=== PATIENT | female | born 1960 | race Caucasian/White ===

== ENCOUNTER 2019-08-10 14:31 | Emergency (ER) | payer SELFPAY ==
[~2019-08-10] VITALS: Ht 162.6 cm; Wt 72.6 kg
[2019-08-10 14:31] VITALS: BP 135/98
--- NOTE | 2019-08-10 14:32 | NUR ---
PT BIBA TO BED 04.
--- NOTE | 2019-08-10 14:40 | NUR ---
58 YEAR OLD FEMALE BIBA FROM HOUSE. PATIENT COMPLAINS OF HEADACHE 6/10 BURNING PAIN, WITH NUMB MOUTH AND "HEAD PRESSURE" AFTER SHE ATE YOGURT. PATIENT STATES SHE ATE YOGURT AT 1350. PATIENT ALERT AND ORIENTED, BREATHING EVEN AND UNLABORED, SKIN WARM AND DRY. BED IN LOWEST POSITION, LOCKED, BED RAIL UPX1.
[2019-08-10] MEDS: ALUMINUM HYD/MAG/SIMETHICONE 30 ML UDC PO ONE (15:31)
[2019-08-10] MEDS: FAMOTIDINE 20 MG TAB PO ONE (15:31)
--- NOTE | 2019-08-10 15:31 | NUR ---
ATTEMPTED TO ADMINISTERED PEPCID PO AND MAALOX ORDERED WITH EDUCATION, PT CHEWED PEPCID AND SPIT INTO WATER, DID NOT DRINK WATER AFTER. PATIENT DENIES MAALOX AND STATED THAT IT "BURNED" AND THAT SHE WOULD RATHER HAVE BAKING SODA.
--- NOTE | 2019-08-10 15:35 | NUR ---
PRIMARY RN ATTEMPTED TO MEDICATE PT. PT REFUSING TO SWALLOW MEDICATION. MD MADE AWARE. DISCHARGE ORDERS TO FOLLOW.
--- NOTE | 2019-08-10 15:37 | NUR ---
PT DISCHARGE WITH RX OF PEPCID. EDUCATED PT ON MEDICATION AND WHERE TO OBTAIN RX. PT STATED "SO AM I DONE HERE OR WHAT" AND REFUSED TO LISTEN TO DISCHARGE INSRUCTIONS.
--- NOTE | 2019-08-10 15:40 | NUR ---
PT REFUSING TO LEAVE ROOM. SECURITY CALLED.
--- NOTE | 2019-08-10 15:45 | NUR ---
SECURITY ESCORTING PT OFF PROPERTY.
== END 2019-08-10 15:37 | disposition home or self-care (01) ==
LOC: MED 14:31
DX: R04.2 Hemoptysis (principal); R11.0 Nausea; R10.9 Unspecified abdominal pain; Z59.0 Homelessness
CPT/HCPCS: 99283